=== PATIENT | male | born 1970 | race Caucasian/White ===

== ENCOUNTER 2017-08-23 07:57 | Emergency (ER) | payer OTHER ==
[2017-08-23 08:03] VITALS: BP 145/80; PULSE 64; TEMP 97.7; BMI 24.4
--- NOTE | 2017-08-23 08:48 | PDOC ---
History of Present Illness - General Chief Complaint: Pain Stated Complaint: STOMACH PAIN, NAUSEA Time Seen by Provider: 08/23/17 08:12 History Source: Patient Exam Limitations: No Limitations - History of Present Illness Initial Comments: 08/23/17 09:27 Patient is a 47-year-old male with past medical history of spinal surgery 1 month ago for fusion who presents to the emergency department today complaining of abdominal pain, nausea, vomiting, diarrhea and potential blood in the stool. Patient states that he ate boneless chicken wings from [employer] last night. A couple hours later he woke up with abdominal pain nausea and vomiting. He states that last night the pain was 7-8 out of 10. He presents to the emergency department for evaluation of his abdominal pain. Patient vomits once in the emergency department. He now states that after vomiting he feels much better and would like to go home. Denies fevers, chills, shortness of breath, sore throat, chest pain, frequency, urgency and hematuria. Past History - Travel Traveled outside of the country in the last 30 days: No Close contact w/someone who was outside of country & ill: No - Past Medical History Allergies/Adverse Reactions: Allergies Allergy/AdvReac Type Severity Reaction Status Date / Time No Known Allergies Allergy Verified 08/23/17 08:02 Home Medications: Ambulatory Orders Hydrocodone/Acetaminophen [Hydrocodon-Acetaminophn 10-325] 1 each PO PRN Ondansetron [Zofran Odt -] 4 mg SL TID #10 od.tablet 08/23/17 COPD: No - Suicide/Smoking/Psychosocial Hx Smoking Status: No Smoking History: Never smoked Number of Cigarettes Smoked Daily: 0 Review of Systems - Review of Systems Able to Perform ROS?: Yes Comments:: 08/23/17 09:21 CONSTITUTIONAL: Absent: fever, chills, diaphoresis, generalized weakness, malaise, loss of appetite HEENT: Absent: rhinorrhea, nasal congestion, throat pain, throat swelling, difficulty swallowing, mouth swelling, ear pain, eye pain, visual Changes CARDIOVASCULAR: Absent: chest pain, loss of consciousness, palpitations, irregular heart rate, peripheral edema RESPIRATORY: Absent: cough, shortness of breath, dyspnea with exertion, orthopnea, wheezing, stridor, hemoptysis GASTROINTESTINAL: Present: abdominal pain, n/v/d. Blood in the stool. Absent: abdominal distension , constipation, melena, hematochezia GENITOURINARY: Absent: dysuria, frequency, urgency, hesitancy, hematuria, flank pain, genital pain MUSCULOSKELETAL: Absent: myalgia, arthralgia, joint swelling SKIN: Absent: rash, itching, pallor HEMATOLOGIC/IMMUNOLOGIC: Absent: easy bleeding, easy bruising, lymphadenopathy, frequent infections ENDOCRINE: Absent: unexplained weight gain, unexplained weight loss, heat intolerance, cold intolerance NEUROLOGIC: Absent: headache, focal weakness or paresthesias, dizziness, unsteady gait, seizure, mental status changes, bladder or bowel incontinence PSYCHIATRIC: Absent: anxiety, depression, suicidal or homicidal ideation, hallucinations. Is the patient limited Maltese proficient: No *Physical Exam - Vital Signs Last Vital Signs Temp Pulse Resp BP Pulse Ox 97.7 F 64 18 145/80 99 08/23/17 08:00 08/23/17 08:00 08/23/17 08:00 08/23/17 08:00 08/23/17 08:00 - Physical Exam Comments: 08/23/17 09:21 GENERAL: Well developed, well nourished. Awake and alert. No acute distress. HEENT: Normocephalic, atraumatic. PERRLA, EOMI. No conjunctival pallor. Sclera are non- icteric. Moist mucous membranes. NECK: Supple. Full ROM. No JVD. Carotid pulses 2+ and symmetric, without bruits. No thyromegaly. No lymphadenopathy. ABDOMINAL: Soft. tender to the epigastric and periumbilical region. Non-distended. No rebound or guarding. No organomegaly. Normoactive bowel sounds. MUSCULOSKELETAL Normal range of motion at all joints. No bony deformities or tenderness. No CVA tenderness. EXTREMITIES: No cyanosis. No clubbing. No edema. No calf tenderness. SKIN: Warm and dry. Normal capillary refill. No rashes. No jaundice. NEUROLOGICAL: Alert, awake, appropriate. Cranial nerves 2-12 intact. No deficits to light touch and temperature in face, upper extremities and lower extremities. No motor deficits in the in face, upper extremities and lower extremities. Normoreflexic in the upper and lower extremities. Normal speech. Toes are down- going bilaterally. Gait is normal without ataxia. PSYCHIATRIC: Cooperative. Good eye contact. Appropriate mood and affect. Medical Decision Making - Medical Decision Making 08/23/17 09:22 Patient is a 47-year-old male past medical history of recent spinal surgery approximately 1 month ago, who presents to the emergency department today with nausea vomiting and diarrhea after eating chicken wings last night. Patient with abdominal tenderness to the epigastric and periumbilical regions. Concerned for possible pancreatitis, gastroenteritis, gallstones. Patient states that he does not want to stay for any lab testing or additional IV medication, testing or repeat evaluation. He states that he is at home to his children as his is working. He believes he has food poisoning after eating chicken when his last night. States that he feels better after vomiting in the emergency department. The patient is clinically sober, free from distracting injury, appears to have intact insight and judgment and reason and in my opinion has the capacity to make decisions. The patient presents with abdominal pain, n/v/d. I have explained that I am concerned that this may represent possible pancreatitis, gall stones, less likley appendicitis; they have verbalized an understanding of my concerns. I have told the patient that while their abdominal exam was relatively benign, they could still have any of the conditions listed above. I have discussed the need for lab work, EKG, to get more information about potential causes of the patients abdominal pain. I have told the patient that if they leave, they could get much worse, could become critically ill, and could possibly become disabled or . I have offered to give the patient more pain medication/medication for nausea. I have asked them to stay in the hospital for serial abdominal exams. The patient is not willing to undergo lab work or EKG. He is unwilling to stay overnight for monitoring. He is refusing any further care and is leaving against medical advice. I am unable to convince the patient to stay, I have asked them to return as soon as possible to complete their evaluation. I have answered all their questions *DC/Admit/Observation/Transfer Diagnosis at time of Disposition: Abdominal pain Qualifiers: Abdominal location: generalized Qualified Code(s): R10.84 - Generalized abdominal pain Nausea and vomiting Qualifiers: Vomiting type: unspecified Vomiting Intractability: unspecified Qualified Code( s): R11.2 - Nausea with vomiting, unspecified - Discharge Dispostion Disposition: AGAINST MEDICAL ADVICE Condition at time of disposition: Guarded Decision to Admit order: No - Prescriptions Prescriptions: Ondansetron [Zofran Odt -] 4 mg SL TID #10 od.tablet - Referrals Referrals: Daniel Tobar [Primary Care Provider] - - Patient Instructions Printed Discharge Instructions: DI for Vomiting -- Adult Additional Instructions: You have abdominal pain, vomitign and diarrhea. You are also leaving against medical advice. Avoid all dairy products until 48 hours after the vomiting/diarrhea has resolved. Eat a bland diet including apple sauce, toast, bananas, and plain rice Drink plenty of fluids including pedialyte, watered down juices and water Follow up with your primary care doctor this week Return to the ED immediately if you develop fevers, abdominal pain, worsening vomiting, or if you have any changes in your symptoms. - Post Discharge Activity
[2017-08-23] MEDS ORDERED: SODIUM CHLORIDE 1,000 ML IV STA (08:49)
[2017-08-23] MEDS ORDERED: ONDANSETRON 4 MG/2 ML VIAL IVPUSH ONE (08:49)
[2017-08-23] MEDS ORDERED: ACETAMINOPHEN 1000 MG/100 ML VIAL (NON FORMULARY) IVPB ONE (08:49)
[2017-08-23] MEDS ORDERED: ONDANSETRON 4 MG/2 ML VIAL ONE (08:49)
[2017-08-23] MEDS ORDERED: ONDANSETRON *ODT* 4 MG TABLET SL ONE (09:06)
[2017-08-23] MEDS ORDERED: ONDANSETRON *ODT* 4 MG TABLET ONE (09:08)
== END 2017-08-23 09:32 | disposition left against medical advice (07) ==
LOC: JER 07:57
DX: K52.9 Noninfective gastroenteritis and colitis, unspecified (principal); R10.84 Generalized abdominal pain
CPT/HCPCS: 99282-25; Q0162